=== PATIENT | male | born 1980 | race Caucasian/White ===

== ENCOUNTER 2016-09-14 15:34 | Emergency (ER) | payer OTHER ==
[2016-09-14] MEDS ORDERED: Bacitracin Oint 1 GM U/D Packet TOP ONE (15:39)
[2016-09-14] MEDS ORDERED: Lidocaine 1% 30 ML SDV INJECT ONE (15:39)
--- NOTE | 2016-09-14 15:43 | EDM.PDOC ---
ED HPI GENERAL MEDICAL PROBLEM - General Chief Complaint: Laceration Stated Complaint: RIGHT THUMB Time Seen by Provider: 09/14/16 15:38 Source of Information: Reports: Patient History Limitations: Reports: No Limitations - History of Present Illness INITIAL COMMENTS - FREE TEXT/NARRATIVE: This 36 yo male patient reports to the ED with a laceration to his right thumb. The patient reports he was sharpening a knife when it slipped. The patient has been attempting to apply direct pressure to the area, but it has continued to bleed. 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 ED EXAM, SKIN/RASH Exam: See Below Exam Limited By: No Limitations General Appearance: Alert, WD/WN, No Apparent Distress Eye Exam: Bilateral Eye: EOMI Ears: Normal External Exam, Normal Canal, Hearing Grossly Normal, Normal TMs Nose: Normal Inspection, Normal Mucosa, No Blood Throat/Mouth: Normal Inspection, Normal Lips, Normal Teeth, Normal Gums, Normal Oropharynx, Normal Voice, No Airway Compromise Head: Atraumatic, Normocephalic Neck: Normal Inspection, Supple, Non-Tender, Full Range of Motion Respiratory/Chest: No Respiratory Distress, Lungs Clear, Normal Breath Sounds, No Accessory Muscle Use, Chest Non-Tender Cardiovascular: Normal Peripheral Pulses, Regular Rate, Rhythm, No Edema, No Gallop, No JVD, No Murmur, No Rub GI/Abdominal: Normal Bowel Sounds, Soft, Non-Tender, No Organomegaly, No Distention, No Abnormal Bruit, No Mass (Male) Exam: Deferred Rectal (Males) Exam: Deferred Back Exam: Normal Inspection, Full Range of Motion, NT Extremities: Normal Range of Motion, Non-Tender, No Pedal Edema, Normal Capillary Refill Neurological: Alert, Oriented, CN II-XII Intact, Normal Cognition, Normal Gait, Normal Reflexes, No Motor/Sensory Deficits Psychiatric: Normal Affect, Normal Mood Skin: Warm, Dry, Normal Color, No Rash Location, Skin: Upper Extremity, Right Characteristics: Linear Associated features: No: Warmth, Tenderness, Wwelling, Induration Lymphatic: No Adenopathy ED SKIN PROCEDURES - Laceration/Wound Repair Right Distal Finger Lac/wound length in cm: 2.5 Appearance: subcutaneous Distal NVT: neuro & vascular intact Anesthetic Type: local Local anesthesia - Lidocaine (Xylocaine): 1% plain Local anesthetic volume: 2cc Skin prep: chlorhexidine (hibiciens) Exploration/Debridement/Repair: wound explored, in a bloodless field, explored to base, no foreign material found Closed with: sutures Suture size: 4-0 # of sutures: 4 Suture type: prolene, interrupted, simple Sterile dressing applied: nurse Tetanus status addressed: Yes Complications: No Course - Vital Signs Last Recorded V/S: Last Vital Signs Temp 36.0 C 09/14/16 15:45 Pulse 102 H 09/14/16 15:45 Resp 20 09/14/16 15:45 BP 135/81 09/14/16 15:45 Pulse Ox 95 09/14/16 15:45 - Orders/Labs/Meds Meds: Medications Discontinued Medications Generic Name Dose Route Start Last Admin Trade Name Ceci PRN Reason Stop Dose Admin Bacitracin 1 dose 09/14/16 15:39 09/14/16 15:47 Bacitracin Oint 1 Gm TOP 09/14/16 15:40 1 dose ONETIME ONE Administration Lidocaine HCl 30 ml 09/14/16 15:39 09/14/16 15:48 Xylocaine-Mpf 1% INJECT 09/14/16 15:40 30 ml ONETIME ONE Administration Departure - Departure Time of Disposition: 16:02 Disposition: Home, Self-Care 01 Condition: fair Clinical Impression: Laceration of right thumb Qualifiers: Encounter type: initial encounter Qualified Code(s): S61.011A - Laceration without foreign body of right thumb without damage to nail, initial encounter - Discharge Information Instructions: Laceration Care, Adult, [id number] Forms: ED Department Discharge Care Plan Goals: The patient was advised of the examination results during the visit. The wound margins were well approximated during the visit. The patient should keep the area clean and dry for the next 24 hours. The sutures should be removed in 10- 14 days. If the patient has any additional symptoms or concerns, the patient should follow-up with his primary care facility or return to the emergency department.
[2016-09-14 15:46] VITALS: BP 135/81
== END 2016-09-14 16:09 | disposition home or self-care (01) ==
LOC: DL.ED 15:34
DX: S61.011A Laceration without foreign body of right thumb without damage to nail, initial encounter (principal); Z79.899 Other long term (current) drug therapy; W26.0XXA Contact with knife, initial encounter
CPT/HCPCS: 12001; 99282